=== PATIENT | male | born 1980 | race Caucasian/White ===

== ENCOUNTER 2017-09-24 20:15 | Emergency (ER) | payer OTHER ==
[~2017-09-24] VITALS: Ht 182.9 cm; Wt 91.2 kg
[2017-09-24 22:15] VITALS: BP 163/86
[2017-09-24] MEDS ORDERED: HYDROcodone-ACET 10/325MG TAB PO ONE (22:30)
[2017-09-24] MEDS ORDERED: KETOROLAC TROMETH 60MG/2ML VIAL IM ONE (22:30)
== END 2017-09-24 23:38 | disposition home or self-care (01) ==
LOC: ER 20:15
DX: S42.001A Fracture of unspecified part of right clavicle, initial encounter for closed fracture (principal); R42 Dizziness and giddiness; V43.52XA Car driver injured in collision with other type car in traffic accident, initial encounter; Y93.89 Activity, other specified; Y92.89 Other specified places as the place of occurrence of the external cause; Y99.8 Other external cause status
CPT/HCPCS: 70450; 72125; 73030; 73060; 96372; 99284; J1885